=== PATIENT | male | born 1945 | race American Indian/Alaskan Native ===

== ENCOUNTER 2017-09-23 04:16 | Emergency (ER) | payer MEDICARE, OTHER ==
[2017-09-23 04:27] VITALS: BMI 36.9
--- NOTE | 2017-09-23 04:54 | ED PDOC ---
Arrival/HPI - General Chief Complaint: Lower Extremity Problem/Injury Time Seen by Provider: 09/23/17 04:24 Historian: Patient - History of Present Illness Narrative History of Present Illness (Text): 71yo male, presents to ER for evaluation of a shooting pain to his left leg, radiating from his left hip. He reports a history of sciatica and denies any recent trauma. 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 He has been taking 1-2 tablets of regular strength Advil per day with minimal relief of pain. patient denies any trauma, injury, weakness, numbness, tingling, fever, chills, bowel or bladder incontinence. He denies any back surgery or having MRI studies in the past. Past Medical History - Provider Review Nursing Documentation Reviewed: Yes - Travel History Have you recently traveled outside [place] w/in the past 3 mons?: No - Infectious Disease Hx of Infectious Diseases: None - Tetanus Immunization Tetanus Immunization: Unknown - Cardiac Hx Hypertension: Yes - Endocrine/Metabolic Hx Endocrine Disorders: Yes Hx Hypothyroidism: Yes - Musculoskeletal/Rheumatological Hx Arthritis: Yes - Psychiatric Hx Substance Use: No - Surgical History Hx Musculoskeletal Surgery: Yes (right shoulder) Hx Orthopedic Surgery: Yes (R rotator cuff) Other/Comment: Broken ribs - Anesthesia Hx Anesthesia: Yes Hx Anesthesia Reactions: No Hx Malignant Hyperthermia: No - Suicidal Assessment Feels Threatened In Home Enviroment: No Family/Social History - Physician Review Nursing Documentation Reviewed: Yes Family/Social History: No Known Family HX Smoking Status: Never Smoked Hx Alcohol Use: No Hx Substance Use: No Hx Substance Use Treatment: No Allergies/Home Meds Allergies/Adverse Reactions: Allergies No Known Allergies Allergy (Verified 09/23/17 04:30) Home Medications: Home Meds Medication Instructions Recorded Confirmed Valsartan/Hydrochlorothiazide 1 tab PO DAILY 04/18/13 06/09/16 [Valsartan and Hydrochlorothiazide 25 mg-160 M] Amlodipine Besylate [Norvasc] 10 mg PO DAILY 12/01/15 06/09/16 Levothyroxine [Levoxyl] 0.025 mg PO DAILY 06/09/16 06/09/16 Review of Systems - Physician Review All systems were reviewed & negative as marked: Yes - Review of Systems Constitutional: absent: Fevers Respiratory: absent: SOB Cardiovascular: absent: Chest Pain Musculoskeletal: Back Pain, Other (left leg pain) Neurological: absent: Focal Weakness Physical Exam Vital Signs Reviewed: Yes Temperature: Afebrile Blood Pressure: Normal Pulse: Regular Respiratory Rate: Normal Appearance: Positive for: Well-Appearing, Non-Toxic, Comfortable Pain Distress: None Mental Status: Positive for: Alert and Oriented X 3 - Systems Exam Head: Present: Atraumatic, Normocephalic Pupils: Present: PERRL Extroacular Muscles: Present: EOMI Conjunctiva: Present: Normal Mouth: Present: Moist Mucous Membranes Neck: Present: Normal Range of Motion Respiratory/Chest: Present: Clear to Auscultation, Good Air Exchange. No: Respiratory Distress, Accessory Muscle Use Cardiovascular: Present: Regular Rate and Rhythm, Normal S1, S2. No: Murmurs Abdomen: No: Tenderness, Distention, Peritoneal Signs Back: Present: Normal Inspection. No: CVA Tenderness, Midline Tenderness, Paraspinal Tenderness, Pain with Leg Raise Upper Extremity: Present: Normal Inspection. No: Cyanosis, Edema Lower Extremity: Present: Normal Inspection, NORMAL PULSES, Neurovascularly Intact. No: Edema, CALF TENDERNESS Neurological: Present: GCS=15, CN II-XII Intact, Speech Normal Skin: Present: Warm, Dry, Normal Color. No: Rashes Psychiatric: Present: Alert, Oriented x 3, Normal Insight, Normal Concentration Medical Decision Making ED Course and Treatment: Impression: Uncomplicated sciatica Plan: -- Motrin 800 mg PO -- Reassess and disposition Progress Notes: - Medication Orders Current Medication Orders: Discontinued Medications Ibuprofen (Motrin Tab) 800 mg PO STAT STA Stop: 09/23/17 04:33 Last Admin: 09/23/17 04:47 Dose: 800 mg MAR Pain/Vitals Document 09/23/17 04:47 AD (Rec: 09/23/17 04:47 AD [id number]) Presence of Pain Presence of Pain Yes Pain Scale Used Pain Scale Used Numeric Location Pain Location Body Site Back Intensity 5 Scale Used Numeric Radiation Location left leg Pain Behavior Facial Grimacing - Scribe Statement The provider has reviewed the documentation as recorded by the Devynibrobert Joseph Provider Scribe Attestation: All medical record entries made by the Scribe were at my direction and personally dictated by me. I have reviewed the chart and agree that the record accurately reflects my personal performance of the history, physical exam, medical decision making, and the department course for this patient. I have also personally directed, reviewed, and agree with the discharge instructions and disposition. Disposition/Present on Arrival - Present on Arrival History of DVT/PE: No History of Uncontrolled Diabetes: No Urinary Catheter: No History of Decub. Ulcer: No History Surgical Site Infection Following: None - Disposition Diagnosis: Sciatica Disposition: HOME/ ROUTINE Discharge Instructions (ExitCare): Sciatica (DC) Prescriptions: Ibuprofen [Motrin Tab] 800 mg PO Q8 PRN #30 tab PRN Reason: Pain, Moderate (4-7) traMADol [Ultram] 50 mg PO TID PRN #12 tab PRN Reason: Pain, Moderate (4-7) Referrals: Hector Cheema DO [Staff Provider] - Follow up with primary Forms: [facility] (Finnish), WORK NOTE
[2017-09-23 04:59] VITALS: PULSE 65; RESP 18; TEMP 97.7
[2017-09-23 05:32] VITALS: BP 140/89; O2SAT 100
== END 2017-09-23 05:22 | disposition home or self-care (01) ==
LOC: ED 04:16
DX: M54.30 Sciatica, unspecified side (principal)